=== PATIENT | male | born 1985 | race Caucasian/White ===

== ENCOUNTER 2016-11-28 17:54 | Emergency (ER) | payer SELFPAY ==
[2016-11-28 17:24] LABS: URINE SOURCE CLEAN CATCH
[2016-11-28 17:29] LABS: URINE APPEARANCE CLEAR; URINE BILIRUBIN NEG (NEG); URINE BLOOD NEG (NEG); URINE COLOR YELLOW; URINE GLUCOSE NEG (NORM); URINE KETONE TRACE (NEG); URINE LEUKOCYTE ESTERASE NEG (NEG); URINE NITRATE NEG (NEG); URINE PROTEIN NEG (NEG)
[2016-11-28 17:31] LABS: MICRO INDICATED? NO
[~2016-11-28 17:54] MED LIST: AMOXICILLIN500 M1 PO; CLINDAMYCIN HC300 MG PO; DENTAL BALLS; IBUPROFEN PO; NO MEDICATIONS; ULTRAM PO; VICODIN 5/500 T1 TAB PO
[2016-12-02 21:45] LABS: CHLAMYDIA TRACH Not Detected (Not Detected); N GONOR Detected (Not Detected)
== END 2016-11-28 18:29 | disposition home or self-care (01) ==
LOC: SED 17:54
PROVIDERS: Nurse Practitioner; Nurse Practitioner Family
DX: N34.2 Other urethritis (principal); F17.210 Nicotine dependence, cigarettes, uncomplicated
CPT/HCPCS: 81003; 87491; 87591; 96372; 99283; J0696